=== PATIENT | female | born 1965 | race Caucasian/White ===

== ENCOUNTER → 2016-07-15 16:45 | Outpatient (CLI) | payer MEDICAID ==
[2011-10-24 20:02] VITALS: BMI 25.7
== END | disposition home or self-care (01) ==
LOC: D.MAMMO 07-12 08:30
DX: N63 Unspecified lump in breast (principal); N61.0 Mastitis without abscess

== ENCOUNTER 2016-08-31 08:47 | Inpatient (IN) | payer MEDICAID ==
--- NOTE | 2016-08-29 21:00 | NUR ---
MEDS GIVEN PER MAR.
[~2016-08-31] VITALS: Ht 160 cm; Wt 69.4 kg
[2016-08-31 10:35] LABS: BASOPHILS 0.4 % (0-2); EOSINOPHILS 0.9 % (0-7); HEMOGLOBIN 13.1 g/dL (12-16); IMMATURE GRANULOCYTES 0.7 % (0-5); LYMPHOCYTES 40.3 % (15-50); MCH 31.3 pg (26.0-34.0); MCHC 33.6 g/dL (31.0-37.0); MCV 93.3 fL (80.0-100.0); MEAN PLATELET VOLUME 9.6 fL (7.4-10.4); MONOCYTES 5.6 % (2-11); NEUTROPHILS 52.1 % (40-80); PLATELET COUNT 268 10x3/uL (130-400); RBC 4.18 10x6/uL (4.00-5.40); RDW 12.6 % (11.5-14.5); WBC 5.5 10x3/uL (4.8-10.8)
[2016-08-31 10:39] LABS: INR 0.93 (0.85-1.17); PROTIME 12.3 SECONDS (11.6-15.0)
[2016-08-31 10:40] LABS: APTT 30.1 SECONDS (22.8-39.4)
[2016-08-31 10:41] LABS: ALBUMIN 3.7 g/dL (3.4-5.0); ANION GAP 14.2 mmol/L (8-16); BILIRUBIN - TOTAL 0.25 mg/dL (0.2-1.3); CALCIUM 9.3 mg/dL (8.5-10.1); CARBON DIOXIDE 25.6 mmol/L (21.0-32.0); CREATININE - SERUM 0.9 mg/dL (0.6-1.3); POTASSIUM - SERUM 3.8 mmol/L (3.5-5.1); PROTEIN - SERUM 7.8 g/dL (6.4-8.2)
[2016-08-31] MEDS ORDERED: ACETAMINOPHEN500 M1 PO (13:52)
[2016-08-31 13:54] VITALS: BP 110/60; BMI 27.1
[2016-08-31 16:38] VITALS: BP 105/63
[2016-08-31 20:00] VITALS: BP 126/69
--- NOTE | 2016-08-31 20:00 | NUR ---
ASSESSMENT PER FLOWSHEET. RT BREAST SWOLLEN(ENGORGED) WITH BLACK AREAS NOTED TO NIPPLE SITE. IV PATENT LEFT HAND OF NS AT 50CC'S/HR. SITE CLEAR. DR. VASQUES HERE TO SEE PATIENT.FAMILY MEMBERS AT BEDSIDE.
--- NOTE | 2016-08-31 22:30 | NUR ---
C/O PAIN RT BREAST AREA RATES PAIN LEVEL #6. NORCO TAB ONE PO GIVEN FOR PAIN CONTROL.
[2016-09-01] VITALS: BP 112/68
--- NOTE | 2016-09-01 | NUR ---
RESTING QUIETLY IN BED SR UP X2 CALL LIGHT WITHIN EACH. DENIES NEEDS.
--- NOTE | 2016-09-01 01:33 | NUR ---
EYES CLOSED RESPIRATIONS WITH EASE AND UNLABORED.
--- NOTE | 2016-09-01 03:37 | NUR ---
C/O PAIN RT BREAST AREA RATES PAIN #7. NORCO TAB ONE PO GIVEN FOR PAIN CONTROL.
[2016-09-01 04:00] VITALS: BP 116/71
[2016-09-01 07:56] VITALS: BP 112/67
--- NOTE | 2016-09-01 08:00 | NUR ---
ASSESSMENT PER FLOW SHEET.PT WITHOUT DISTRESS.FAMILY AT BEDSIDE.CALL LIGHT IN REACH
--- NOTE | 2016-09-01 08:10 | NUR ---
PAIN MEDS ORDERED.PT TO SHOWER FOR HEPI CLENS BATH
[2016-09-01 12:34] VITALS: BP 129/47
--- NOTE | 2016-09-01 12:40 | NUR ---
CONSENTS TO CHART.PREMEDS ORDERED.
--- NOTE | 2016-09-01 12:54 | NUR ---
Patient Name: RIMMA HERNANDEZ Admission Status: ER Accout number: [id number] Admission Date: 08-31-2016 : 1965 Admission Diagnosis: Attending: KIRA Current LOS: 1 Anticipated DC Date: 09-06-2016 Planned Disposition: Home Primary Insurance: [place] [employer]IONS [place] Discharge Planning Comments: CM MET WITH PATIENT AND SISTER (DEVORA) REGARDING D/C NEEDS AND PLANS. PATIENT STATED SHE LIVES NEXT DOOR TO HER SISTER AND SHE WILL DRIVE HER HOME AT DISCHARGE. PATIENTS HOME IS SAFE AND HAS 3 STEPS W/RAILS TO ENTER HOME AND NO STAIRS INSIDE. PATIENT IS INDEPENDENT WITH HER CARE AND HAS NO DME AT HOME. PATIENT HAS NO PCP AND USES [facility] [address] FOR HER PHARMACY. PATIENT DOES NOT WANT HOME HEALTH AT THIS TIME. CM WILL CONTINUE TO FOLLOW PATIENT WITH D/C NEEDS AND PLANS. PCP NONE [facility] [address]- [phone] DEVORA (SISTER) [phone] Electronics Instructor: Katy Carnes Is the patient Alert and Oriented? Yes 0 * How many steps to enter\exit or inside your home? 3 W/RAILS 0 * PCP NONE 0 * Pharmacy [facility] [address] 0 * Preadmission Environment Home with Family 0 * ADLs Independent 0 * Equipment None 0 * List name and contact numbers for known caregivers / representatives who currently or will assist patient after discharge: DEVORA (SISTER) [phone] * Community resources currently utilized None 0 * Additional services required to return to the preadmission environment? Yes 0 * Can the patient safely return to the preadmission environment? Yes 0 * Has this patient been hospitalized within the prior 30 days at any hospital? No 0 Grand Total: 0
--- NOTE | 2016-09-01 12:57 | NUR ---
TO OR VIA BED
[2016-09-01 14:47] VITALS: Ht 160 cm; Wt 69.4 kg
[2016-09-01 15:05] VITALS: BP 111/73
--- NOTE | 2016-09-01 15:41 | NUR ---
CM REASSESSMENT NOTE: PATIENT WILL DISCHARGE HOME TODAY/SISTER IS DRIVING HER. PATIENT DID NOT WANT HOME HEALTH AND HAD NO OTHER NEEDS.
[2016-09-01 15:50] VITALS: BP 111/70
[2016-09-01] MEDS ORDERED: ULTRAM50 MG PO (16:19)
--- NOTE | 2016-09-01 17:30 | NUR ---
PORT FLUSHED PER PROTOCOL.NEEDLE DCD
--- NOTE | 2016-09-01 17:32 | NUR ---
DISCHARGE INSTRUCTIONS,STATES UNDERSTANDING.LEFT UNIT VIA WHEEL CHAIR
--- NOTE | 2016-09-03 13:26 | EC ---
PATIENT:RIMMA HERNANDEZ DATE OF SERVICE: 08/31/16 SEX: F MEDICAL RECORD: [id number] DATE OF : [birth year] LOCATION:D.[facility] AGE OF PATIENT: 51 ADMISSION DATE: 08/31/16 REFERRING PHYSICIAN: INTERPRETING PHYSICIAN: NUBIA COON M.D. ECHOCARDIOGRAM REPORT ECHO CHARGES 4 ECHO COMPLETE CLINICAL DIAGNOSIS: PRE-CHEMO ECHOCARDIOGRAPHIC MEASUREMENTS (adult normal given) AC root (d.<3.7cm) 3.1 LV Septum d (<1.2 cm> 1.0 Valve Excursion 2.1 LV Septum (systole) 1.5 Left Atria (s.<4.0cm> 2.9 LVPW d(<1.2cm) 1.1 RV (d.<2.3cm) 2.9 LVPW (sytole) 1.5 LV diastole(<5.6CM) 4.3 MV E-F(>70mm/sec) LV systole 2.5 LVOT Diameter 1.9 MV exc.(>10mm) Est.ejection fraction (50-75%) Pericardial Effusion N DOPPLER: LVIT A 74.0 E 119 LA RVSP 49.0 LVOT 123 AOP1/2T Asc. Ao 180 RVOT 59.0 RA PA 80.0 AV Gradient Peak 13.0 AV Mean 5.9 AV Area 1.4 MV Gradient Peak 10.2 MV Mean 2.5 MV Area COMMENTS: [employer] Fusion Middleware Developer: Sal STREETOE Strike Operations Officer:2 Dr. Coon TAPE# PACS DATE OF SERVICE: 09/01/2016 REFERRING PHYSICIAN: ____. INDICATION: Assess ejection fraction prior to chemotherapy. DESCRIPTION: Left ventricle is normal size and function. No wall motion abnormalities are noted. Estimated ejection fraction is 55%. Mitral valve is structurally normal. There is trivial regurgitation seen. Left atrium is normal in size. The aortic valve is trileaflet. There is no stenosis or ECHOCARDIOGRAM REPORT [id number] RIMMA HERNANDEZ regurgitation seen. The right ventricle is mildly dilated. Tricuspid valve is structurally normal. There is moderate regurgitation seen. Right ventricular systolic pressure is elevated at 49 mmHg. There is no pericardial effusion noted. IMPRESSION: 1. Normal left ventricular size and function, ejection fraction of 55%. 2. Trivial mitral regurgitation. 3. _Moderate tricuspid regurgitation with elevated pulmonary pressures. TRANSINT:[id number] Voice Confirmation ID: [id number] DOCUMENT ID: [id number] NUBIA COON M.D. at 1326 CC: [id number] DICTATION DATE: 09/01/16 1521 GERIATRIC PERSONAL CARE AIDE: 09/02/16 0109 DIS IN 09/01/16 [facility] [address] [id number]
--- NOTE | 2016-09-03 14:34 | OP ---
PATIENT NAME: RIMMA HERNANDEZ MEDICAL RECORD: [id number] :[birth year] LOCATION:[id number] ADMISSION DATE:08/31/16 SURGEON: LONG BLAKE MD DATE OF OPERATION: 09/01/2016 PREOPERATIVE DIAGNOSES: 1. Inflammatory breast cancer. 2. Meth dependence. 3. Tobacco dependence syndrome. POSTOPERATIVE DIAGNOSES: 1. Inflammatory breast cancer. 2. Meth dependence. 3. Tobacco dependence syndrome. PROCEDURE: Left subclavian vein PowerPort placement with fluoroscopic interpretation. SURGEON: Long Blake MD OPERATIVE PROCEDURE: The patient's left chest was prepped and draped in sterile fashion. A needle was used to cannulate the left subclavian vein. The guidewire was advanced with ease. Fluoro was used to note that the wire was in good position in the venous system. A skin incision was then made on the left superior chest and a subcutaneous pouch was made over the pectoral fascia. The catheter was then tunneled between this pouch and the wire exit site. The port was then sutured to the pectoral fascia using interrupted 2-0 Prolenes times 2. The catheter was cut with a beveled tip at 20 cm. The dilator trocar device was placed over the wire and the wire and dilator were removed. The catheter tip was advanced through the trocar and the trocar was removed with ease. Fluoro was used to note that the catheter tip resting in good position in the superior vena cava. The catheter aspirated nonpulsatile dark blood and flushed easily with heparinized saline. The subcutaneous tissues were reapproximated with interrupted 3-0 Vicryl and the skin was closed with running subcutaneous 5-0 Monocryl. We then accessed the port and flushed it for one last time with heparin flush. COMPLICATIONS: None. CONDITION: Stable. ANESTHESIA: General endotracheal and local. BLOOD LOSS: Minimal. TRANSINT:[id number] Voice Confirmation ID: [id number] DOCUMENT ID: [id number] OPERATIVE REPORT [id number] RIMMA HERNANDEZ CHRISTIAN MD at 1434 CC: INES VASQUES MD [id number] DICTATION DATE: 09/01/16 1401 BEAM MACHINE OPERATOR: 09/02/16 0151 DIS IN 09/01/16 [facility] [address] [place] [address]
== END 2016-09-01 17:33 | disposition home or self-care (01) | DRG 580 ==
LOC: D.ER 08:47 → D.MS 10:41
PROVIDERS: Emergency Medicine; Surgery; ADMIT Internal Medicine Medical Oncology
PROC: 05H633Z Insertion of Infusion Device into Left Subclavian Vein, Percutaneous Approach (ICD-10-PCS; 2016-09-01)
PROC: B5171ZA Fluoroscopy of Left Subclavian Vein using Low Osmolar Contrast, Guidance (ICD-10-PCS; 2016-09-01)
PROC: 0JH63XZ Insertion of Tunneled Vascular Access Device into Chest Subcutaneous Tissue and Fascia, Percutaneous Approach (ICD-10-PCS; principal; 2016-09-01 12:00)
DX: C50.912 Malignant neoplasm of unspecified site of left female breast (principal); F15.20 Other stimulant dependence, uncomplicated; F17.200 Nicotine dependence, unspecified, uncomplicated

== ENCOUNTER → 2016-09-27 10:37 | Outpatient (CLI) | payer MEDICAID ==
[2016-09-01 14:47] VITALS: BMI 27.1
[~2016-09-27 10:37] MED LIST: ACETAMINOPHEN500 M1 PO; ULTRAM50 MG PO
== END | disposition home or self-care (01) ==
LOC: D.MRI 10:37
DX: M54.5 Low back pain (principal)

== ENCOUNTER 2017-01-04 12:51 | Emergency (ER) | payer MEDICAID ==
[2016-09-01 14:47] VITALS: BMI 27.1
[2017-01-04 15:45] LABS: HEMATOCRIT 34.4 % (36.0-48.0); HEMOGLOBIN 11.7 g/dL (12-16); MCH 33.4 pg (26.0-34.0); MCV 98.3 fL (80.0-100.0); MEAN PLATELET VOLUME 11.6 fL (7.4-10.4); RDW 13.9 % (11.5-14.5); WBC 2.4 10x3/uL (4.8-10.8)
[2017-01-04 15:54] LABS: PLATELET COUNT 65 10x3/uL (130-400)
[2017-01-04 16:15] LABS: ALBUMIN 3.3 g/dL (3.4-5.0); ALKALINE PHOSPHATASE 79 U/L (46-116); ALT (SGPT) 19 U/L (10-68); BILIRUBIN - TOTAL 0.35 mg/dL (0.2-1.3); CALC OSMOLALITY 270 mosm/kg (275-300); CALCIUM 8.1 mg/dL (8.5-10.1); CARBON DIOXIDE 21.5 mmol/L (21.0-32.0); CHLORIDE - SERUM 102 mmol/L (98-107); CREATININE - SERUM 0.6 mg/dL (0.6-1.3); POTASSIUM - SERUM 3.5 mmol/L (3.5-5.1); PROTEIN - SERUM 7.3 g/dL (6.4-8.2); SODIUM 134 mmol/L (136-145); UREA NITROGEN 17 mg/dL (7-18); eGFR NON AFRICAN AMERICAN > 90 mL/min (90-120)
[2017-01-04 16:16] LABS: GLUCOSE 117 mg/dL (74-106)
[2017-01-04 16:18] LABS: EOSINOPHILS 3 % (0-7); LYMPHOCYTES 63 % (15-50); MONOCYTES 6 % (2-11); NEUTROPHILS 23 % (40-80); PLATELET ESTIMATE DECREASED
== END 2017-01-04 18:50 | disposition home or self-care (01) ==
LOC: D.ER 12:51
PROVIDERS: Nurse Practitioner Acute Care
DX: E86.0 Dehydration (principal); C50.919 Malignant neoplasm of unspecified site of unspecified female breast; F17.200 Nicotine dependence, unspecified, uncomplicated

== ENCOUNTER → 2017-01-26 10:01 | Outpatient (CLI) | payer MEDICAID ==
[2016-09-01 14:47] VITALS: BMI 27.1
--- NOTE | 2017-02-04 16:56 | EC ---
PATIENT:RIMMA HERNANDEZ DATE OF SERVICE: 01/26/17 SEX: F MEDICAL RECORD: [id number] DATE OF : [birth year] LOCATION:D[facility] AGE OF PATIENT: 51 ADMISSION DATE: 01/26/17 REFERRING PHYSICIAN: INTERPRETING PHYSICIAN: CORDELIA ESTRADA MD ECHOCARDIOGRAM REPORT ECHO CHARGES 4 ECHO COMPLETE CLINICAL DIAGNOSIS: POST CHEMOTHERAPY ECHOCARDIOGRAPHIC MEASUREMENTS (adult normal given) AC root (d.<3.7cm) 3.2 cm LV Septum d (<1.2 cm> 1.3 cm Valve Excursion 2.0 cm LV Septum (systole) 2.0 cm Left Atria (s.<4.0cm> 2.3 cm LVPW d(<1.2cm) 1.4 cm RV (d.<2.3cm) 2.5 cm LVPW (sytole) 2.0 cm LV diastole(<5.6CM) 4.0 cm MV E-F(>70mm/sec) cm LV systole 1.6 cm LVOT Diameter 1.9 cm MV exc.(>10mm) cm Est.ejection fraction (50-75%) % Pericardial Effusion N DOPPLER: LVIT cm/sec A 47.0 cm/sec E 55.0 cm/sec LA cm/sec RVSP 36.0 mmHg LVOT 127 cm/sec AOP1/2T m/s Asc. Ao 157 cm/sec RVOT 77.0 cm/sec RA cm/sec PA 101 cm/sec AV Gradient Peak 9.8 mmHg AV Mean 5.9 mmHg AV Area 2.0 cm MV Gradient Peak 3.1 mmHg MV Mean 1.0 mmHg MV Area cm COMMENTS: Gate Supervisor: [address] Miner: 1 Dr. Estrada TAPE# PACS DATE OF SERVICE: 01/26/2017 FINDINGS: 1. Left ventricular chamber size is within normal limits. Left ventricular systolic function is normal. Overall ejection fraction estimated at 55%. 2. Left atrium, right atrium, and right ventricular chamber sizes are within normal limits. 3. Valvular structures have normal structure and motion. 4. Doppler interrogation only reveals mild tricuspid regurgitation. No other valvular insufficiency or stenosis. ECHOCARDIOGRAM REPORT [id number] RIMMA HERNANDEZ 5. No evidence of pericardial effusion or left ventricular thrombus. TRANSINT:[id number] Voice Confirmation ID: [id number] DOCUMENT ID: [id number] CORDELIA ESTRADA MD at 1656 CC: [id number] DICTATION DATE: 01/26/17 1230 STORE RECEIVER: 01/26/17 1257 DEP CLI 01/26/17 [facility] [address] [place] [address]
== END | disposition home or self-care (01) ==
LOC: D.ECHO 01-21 11:00
DX: C50.411 Malignant neoplasm of upper-outer quadrant of right female breast (principal)

== ENCOUNTER 2017-06-13 19:33 | Emergency (ER) | payer MEDICAID ==
[2016-09-01 14:47] VITALS: BMI 27.1
[2017-06-13 21:53] LABS: BASOPHILS 0.2 % (0-2); EOSINOPHILS 2.1 % (0-7); HEMATOCRIT 36.1 % (36.0-48.0); HEMOGLOBIN 12.1 g/dL (12-16); LYMPHOCYTES 36.6 % (15-50); MCH 32.6 pg (26.0-34.0); MCHC 33.5 g/dL (31.0-37.0); MCV 97.3 fL (80.0-100.0); MEAN PLATELET VOLUME 9.5 fL (7.4-10.4); MONOCYTES 6.6 % (2-11); NEUTROPHILS 54.5 % (40-80); PLATELET COUNT 170 10x3/uL (130-400); RBC 3.71 10x6/uL (4.00-5.40); RDW 14.1 % (11.5-14.5); WBC 4.9 10x3/uL (4.8-10.8)
[2017-06-13 22:08] LABS: ALBUMIN 3.6 g/dL (3.4-5.0); ANION GAP 9.5 mmol/L (8-16); BILIRUBIN - TOTAL 0.38 mg/dL (0.2-1.3); CALCIUM 9.3 mg/dL (8.5-10.1); CARBON DIOXIDE 28.3 mmol/L (21.0-32.0); CREATININE - SERUM 0.9 mg/dL (0.6-1.3); POTASSIUM - SERUM 3.8 mmol/L (3.5-5.1); PROTEIN - SERUM 7.6 g/dL (6.4-8.2)
[2017-06-13 22:28] LABS: APPEARANCE CLEAR (CLEAR); BILIRUBIN NEGATIVE (NEGATIVE); COLOR YELLOW (YELLOW); GLUCOSE NEGATIVE (NEGATIVE); KETONE NEGATIVE (NEGATIVE); NITRITE NEGATIVE (NEGATIVE); PROTEIN NEGATIVE (NEGATIVE); SPECIFIC GRAVITY 1.015 (1.005-1.020); UROBILINOGEN NORMAL (NORMAL)
== END 2017-06-13 23:19 | disposition home or self-care (01) ==
LOC: D.ER 19:33
PROVIDERS: Nurse Practitioner Family
DX: R51 Headache (principal); Z85.3 Personal history of malignant neoplasm of breast

== ENCOUNTER 2017-07-06 18:48 | Inpatient (IN) | payer MEDICAID ==
[~2017-07-06] VITALS: Ht 160 cm; Wt 65.8 kg
[2017-07-06 21:17] LABS: BASOPHILS 0 % (0-2); EOSINOPHILS 0.3 % (0-7); HEMATOCRIT 34.8 % (36.0-48.0); IMMATURE GRANULOCYTES 0.2 % (0-5); LYMPHOCYTES 24.7 % (15-50); MCH 33.6 pg (26.0-34.0); MCHC 34.5 g/dL (31.0-37.0); MCV 97.5 fL (80.0-100.0); MEAN PLATELET VOLUME 9.3 fL (7.4-10.4); MONOCYTES 4.6 % (2-11); NEUTROPHILS 70.2 % (40-80); PLATELET COUNT 169 10x3/uL (130-400); RBC 3.57 10x6/uL (4.00-5.40); RDW 13.3 % (11.5-14.5); WBC 9.7 10x3/uL (4.8-10.8)
[2017-07-06 21:30] LABS: ALBUMIN 3.2 g/dL (3.4-5.0); ANION GAP 17.7 mmol/L (8-16); BILIRUBIN - TOTAL 0.31 mg/dL (0.2-1.3); CALCIUM 8.4 mg/dL (8.5-10.1); CREATININE - SERUM 0.9 mg/dL (0.6-1.3); POTASSIUM - SERUM 3.7 mmol/L (3.5-5.1); PROTEIN - SERUM 7.2 g/dL (6.4-8.2)
[2017-07-07 01:12] VITALS: BP 106/62; BMI 25.7
[2017-07-07 08:11] VITALS: BP 97/52
[2017-07-07 12:46] VITALS: BP 96/55
[2017-07-07 13:15] VITALS: Ht 160 cm; Wt 65.8 kg
[2017-07-07 15:54] VITALS: BP 90/43
[2017-07-07 19:49] VITALS: BP 116/68
[2017-07-08] VITALS (7 sets, daily range): BP systolic 84–103; BP diastolic 54–65
[2017-07-08 05:15] LABS: BASOPHILS 0.1 % (0-2); EOSINOPHILS 0.3 % (0-7); HEMATOCRIT 33.5 % (36.0-48.0); HEMOGLOBIN 10.8 g/dL (12-16); IMMATURE GRANULOCYTES 0.1 % (0-5); LYMPHOCYTES 10.6 % (15-50); MCH 32.9 pg (26.0-34.0); MCHC 32.2 g/dL (31.0-37.0); MEAN PLATELET VOLUME 9.1 fL (7.4-10.4); MONOCYTES 3.7 % (2-11); NEUTROPHILS 85.2 % (40-80); PLATELET COUNT 143 10x3/uL (130-400); RBC 3.28 10x6/uL (4.00-5.40); RDW 13.9 % (11.5-14.5)
[2017-07-08 05:16] LABS: MCV 102.1 fL (80.0-100.0)
[2017-07-08 05:37] LABS: CALC OSMOLALITY 280 mosm/kg (275-300); CARBON DIOXIDE 26.8 mmol/L (21.0-32.0); CHLORIDE - SERUM 104 mmol/L (98-107); CREATININE - SERUM 0.8 mg/dL (0.6-1.3); GLUCOSE 105 mg/dL (74-106); POTASSIUM - SERUM 3.7 mmol/L (3.5-5.1); SODIUM 140 mmol/L (136-145); UREA NITROGEN 18 mg/dL (7-18); eGFR NON AFRICAN AMERICAN 80 mL/min (90-120)
[2017-07-09 04:22] VITALS: BP 90/63
[2017-07-09 04:25] LABS: BASOPHILS 0 % (0-2); EOSINOPHILS 0.3 % (0-7); HEMATOCRIT 33.6 % (36.0-48.0); HEMOGLOBIN 10.8 g/dL (12-16); IMMATURE GRANULOCYTES 0.3 % (0-5); LYMPHOCYTES 9.5 % (15-50); MCH 32.7 pg (26.0-34.0); MCHC 32.1 g/dL (31.0-37.0); MCV 101.8 fL (80.0-100.0); MEAN PLATELET VOLUME 8.8 fL (7.4-10.4); MONOCYTES 5.2 % (2-11); NEUTROPHILS 84.7 % (40-80); PLATELET COUNT 135 10x3/uL (130-400); RDW 13.2 % (11.5-14.5); WBC 7.1 10x3/uL (4.8-10.8)
[2017-07-09 04:45] LABS: CALC OSMOLALITY 271 mosm/kg (275-300); CALCIUM 7.8 mg/dL (8.5-10.1); CARBON DIOXIDE 24.8 mmol/L (21.0-32.0); CHLORIDE - SERUM 101 mmol/L (98-107); CREATININE - SERUM 0.6 mg/dL (0.6-1.3); GLUCOSE 96 mg/dL (74-106); SODIUM 136 mmol/L (136-145); eGFR NON AFRICAN AMERICAN > 90 mL/min (90-120)
[2017-07-09 04:48] LABS: UREA NITROGEN 12 mg/dL (7-18)
[2017-07-09 07:42] VITALS: BP 119/52; BP 89/45
[2017-07-09 12:24] VITALS: BP 100/53
[2017-07-09 15:35] VITALS: BP 105/57
[2017-07-09 23:47] VITALS: BP 102/62
[2017-07-10 04:00] VITALS: BP 117/75
[2017-07-10 05:30] LABS: BASOPHILS 0 % (0-2); IMMATURE GRANULOCYTES 0.2 % (0-5); MCH 32.9 pg (26.0-34.0); MCHC 33.3 g/dL (31.0-37.0); MEAN PLATELET VOLUME 8.9 fL (7.4-10.4); MONOCYTES 7.2 % (2-11); NEUTROPHILS 75.6 % (40-80); PLATELET COUNT 146 10x3/uL (130-400); RBC 3.34 10x6/uL (4.00-5.40); RDW 12.9 % (11.5-14.5)
[2017-07-10 05:40] LABS: MCV 98.8 fL (80.0-100.0); WBC 4.9 10x3/uL (4.8-10.8)
[2017-07-10 06:02] LABS: CALC OSMOLALITY 269 mosm/kg (275-300); CALCIUM 8.1 mg/dL (8.5-10.1); CHLORIDE - SERUM 102 mmol/L (98-107); CREATININE - SERUM 0.6 mg/dL (0.6-1.3); GLUCOSE 89 mg/dL (74-106); POTASSIUM - SERUM 3.8 mmol/L (3.5-5.1); SODIUM 136 mmol/L (136-145); UREA NITROGEN 9 mg/dL (7-18); eGFR NON AFRICAN AMERICAN > 90 mL/min (90-120)
[2017-07-10 08:37] VITALS: BP 106/69
[2017-07-10 11:39] VITALS: BP 96/63
[2017-07-10 15:40] VITALS: BP 102/65
[2017-07-10 20:41] VITALS: BP 99/62
[2017-07-11] VITALS (8 sets, daily range): BP systolic 94–189; BP diastolic 56–70
[2017-07-11 04:26] LABS: BASOPHILS 0.3 % (0-2); EOSINOPHILS 1.4 % (0-7); HEMATOCRIT 33.9 % (36.0-48.0); HEMOGLOBIN 11.2 g/dL (12-16); LYMPHOCYTES 28.4 % (15-50); MCH 32.7 pg (26.0-34.0); MCV 99.1 fL (80.0-100.0); MEAN PLATELET VOLUME 9.2 fL (7.4-10.4); MONOCYTES 7.9 % (2-11); PLATELET COUNT 161 10x3/uL (130-400); RBC 3.42 10x6/uL (4.00-5.40); RDW 13.1 % (11.5-14.5)
[2017-07-11 04:27] LABS: WBC 3.6 10x3/uL (4.8-10.8)
[2017-07-11 04:36] LABS: CALC OSMOLALITY 280 mosm/kg (275-300); CALCIUM 8.3 mg/dL (8.5-10.1); CARBON DIOXIDE 26.2 mmol/L (21.0-32.0); CHLORIDE - SERUM 106 mmol/L (98-107); CREATININE - SERUM 0.7 mg/dL (0.6-1.3); GLUCOSE 110 mg/dL (74-106); POTASSIUM - SERUM 3.4 mmol/L (3.5-5.1); SODIUM 141 mmol/L (136-145); UREA NITROGEN 11 mg/dL (7-18); eGFR NON AFRICAN AMERICAN > 90 mL/min (90-120)
[2017-07-12 00:44] VITALS: BP 101/68
[2017-07-12 04:00] VITALS: BP 91/61
[2017-07-12 04:09] LABS: BASOPHILS 0.3 % (0-2); EOSINOPHILS 2.3 % (0-7); HEMATOCRIT 32.6 % (36.0-48.0); HEMOGLOBIN 11.1 g/dL (12-16); LYMPHOCYTES 37.1 % (15-50); MEAN PLATELET VOLUME 9.2 fL (7.4-10.4); NEUTROPHILS 53.3 % (40-80); PLATELET COUNT 174 10x3/uL (130-400); RBC 3.36 10x6/uL (4.00-5.40); RDW 13.2 % (11.5-14.5); WBC 3.8 10x3/uL (4.8-10.8)
[2017-07-12 04:18] LABS: CALC OSMOLALITY 277 mosm/kg (275-300); CALCIUM 8.5 mg/dL (8.5-10.1); CARBON DIOXIDE 23.4 mmol/L (21.0-32.0); CHLORIDE - SERUM 106 mmol/L (98-107); CREATININE - SERUM 0.6 mg/dL (0.6-1.3); GLUCOSE 96 mg/dL (74-106); POTASSIUM - SERUM 3.6 mmol/L (3.5-5.1); SODIUM 139 mmol/L (136-145); UREA NITROGEN 12 mg/dL (7-18); eGFR NON AFRICAN AMERICAN > 90 mL/min (90-120)
[2017-07-12 08:39] VITALS: BP 94/73
[2017-07-12 13:12] VITALS: BP 85/59
[2017-07-12 16:30] VITALS: BP 94/58
[2017-07-12 22:21] VITALS: BP 107/72
[2017-07-13 01:10] VITALS: BP 112/74
[2017-07-13 05:03] VITALS: BP 102/78
[2017-07-13 05:07] LABS: BASOPHILS 0.2 % (0-2); EOSINOPHILS 1.9 % (0-7); HEMATOCRIT 33.3 % (36.0-48.0); HEMOGLOBIN 11.4 g/dL (12-16); IMMATURE GRANULOCYTES 0.5 % (0-5); LYMPHOCYTES 35.7 % (15-50); MCH 33.6 pg (26.0-34.0); MCHC 34.2 g/dL (31.0-37.0); MCV 98.2 fL (80.0-100.0); MEAN PLATELET VOLUME 9.1 fL (7.4-10.4); MONOCYTES 7.5 % (2-11); NEUTROPHILS 54.2 % (40-80); PLATELET COUNT 182 10x3/uL (130-400); RBC 3.39 10x6/uL (4.00-5.40); RDW 13.8 % (11.5-14.5); WBC 4.1 10x3/uL (4.8-10.8)
[2017-07-13 05:24] LABS: ALKALINE PHOSPHATASE 58 U/L (46-116); ALT (SGPT) 16 U/L (10-68); CALC OSMOLALITY 279 mosm/kg (275-300); CALCIUM 8.4 mg/dL (8.5-10.1); CHLORIDE - SERUM 106 mmol/L (98-107); CREATININE - SERUM 0.6 mg/dL (0.6-1.3); GLUCOSE 90 mg/dL (74-106); POTASSIUM - SERUM 3.7 mmol/L (3.5-5.1); PROTEIN - SERUM 7.3 g/dL (6.4-8.2); SODIUM 140 mmol/L (136-145); UREA NITROGEN 14 mg/dL (7-18); eGFR NON AFRICAN AMERICAN > 90 mL/min (90-120)
[2017-07-13 07:52] VITALS: BP 96/55
[2017-07-13 12:20] VITALS: BP 92/54
[2017-07-13 15:54] VITALS: BP 101/56
[2017-07-13 20:31] VITALS: BP 90/51
== END 2017-07-13 20:36 | disposition home health service (06) | DRG 947 ==
LOC: D.ER 18:48 → D.EDHOLD 22:31 → D.MS 22:31
PROVIDERS: Family Medicine; Internal Medicine Nephrology; Physician Assistant Medical
DX: G89.3 Neoplasm related pain (acute) (chronic) (principal); G93.6 Cerebral edema; G92 Toxic encephalopathy; C79.31 Secondary malignant neoplasm of brain; T40.2X5A Adverse effect of other opioids, initial encounter; G72.81 Critical illness myopathy; D64.9 Anemia, unspecified; C50.911 Malignant neoplasm of unspecified site of right female breast; Z17.0 Estrogen receptor positive status [ER+]; Y92.239 Unspecified place in hospital as the place of occurrence of the external cause; Z91.19 Patient's noncompliance with other medical treatment and regimen